=== PATIENT | male | born 1980 | race Caucasian/White ===

== ENCOUNTER 2017-03-25 13:50 | Outpatient (CLI) | payer OTHER | END 2017-03-25 13:51 | disposition home or self-care (01) | LOC: SC 13:50 | PROVIDERS: ATTEND Internal Medicine Pulmonary Disease | DX: G47.10 Hypersomnia, unspecified (principal); G47.8 Other sleep disorders; R06.83 Snoring | CPT/HCPCS: 99203; 99212 ==

== ENCOUNTER 2017-05-14 19:22 | Outpatient (CLI) | payer OTHER | END 2017-05-14 19:23 | disposition home or self-care (01) | LOC: SC 19:22 | PROVIDERS: ATTEND Internal Medicine Pulmonary Disease | DX: G47.33 Obstructive sleep apnea (adult) (pediatric) (principal) | CPT/HCPCS: 95810 ==